=== PATIENT | male | born 1980 | race Hispanic/Latino ===

== ENCOUNTER 2017-07-27 23:24 | Emergency (ER) | payer SELFPAY ==
[2017-07-27 23:24] VITALS: BMI 25.1
[2017-07-27 23:35] VITALS: BP 113/66; PULSE 81; RESP 16; TEMP 98.6; O2SAT 98
--- NOTE | 2017-07-27 23:41 | ED PDOC ---
Lower Extremity Pain/Injury Time Seen by Provider: 07/27/17 23:36 Chief Complaint (Nursing): Lower Extremity Problem/Injury Chief Complaint (Provider): Ankle swelling History Per: Patient Additional Complaint(s): 37 yo male, no PMh, presents to ED with complaint sof pain and swelling to bilateral Achilles. 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 Pt reports taking Motrin with transient relief of pain Past Medical History Reviewed: Nursing Documentation, Vital Signs Vital Signs: Last Vital Signs Temp 98.6 F 07/27/17 23:34 Pulse 81 07/27/17 23:34 Resp 16 07/27/17 23:34 BP 113/66 07/27/17 23:34 Pulse Ox 98 07/27/17 23:34 - Medical History PMH: No Chronic Diseases - Surgical History Surgical History: No Surg Hx - Family History Family History: States: Unknown Family Hx - Living Arrangements Living Arrangements: With Family - Social History Current smoker - smoking cessation education provided: No - Immunization History Hx Tetanus Toxoid Vaccination: No Hx Influenza Vaccination: No Hx Pneumococcal Vaccination: No - Home Medications Home Medications: Ambulatory Orders Medication Instructions Recorded No Known Home Med 04/26/17 - Allergies Allergies/Adverse Reactions: Allergies Allergy/AdvReac Type Severity Reaction Status Date / Time No Known Allergies Allergy Verified 04/26/17 14:19 Review of Systems ROS Statement: Except As Marked, All Systems Reviewed And Found Negative Musculoskeletal: Positive for: Foot Pain Physical Exam - Reviewed Nursing Documentation Reviewed: Yes Vital Signs Reviewed: Yes - Physical Exam Appears: Positive for: Well, Non-toxic, No Acute Distress Head Exam: Positive for: ATRAUMATIC, NORMAL INSPECTION, NORMOCEPHALIC Skin: Positive for: Normal Color, Warm, DRY Eye Exam: Positive for: EOMI, Normal appearance, PERRL ENT: Positive for: Normal ENT Inspection Neck: Positive for: Normal, Painless ROM Cardiovascular/Chest: Positive for: Regular Rate, Rhythm Respiratory: Positive for: CNT, Normal Breath Sounds Gastrointestinal/Abdominal: Positive for: Normal Exam, Bowel Sounds, Soft Back: Positive for: Normal Inspection Extremity: Positive for: Normal ROM, Tenderness (to achillies b/l L > R). Negative for: Deformity, Swelling Neurologic/Psych: Positive for: Alert, Oriented - ECG O2 Sat by Pulse Oximetry: 98 Medical Decision Making Medical Decision Making: RICE therapy advised, along with Motrin PO. Pt reports he can go home right now and take Motrin and will ice. Does not want to stay in ED any long. Pt very happy with evaluation and instructions. Disposition - Clinical Impression Clinical Impression: Tendonitis - Patient ED Disposition Is Patient to be Admitted: No - Disposition Disposition: Routine/Home Disposition Time: 23:41 Condition: STABLE - POA Present On Arrival: None
== END 2017-07-28 00:04 | disposition home or self-care (01) ==
LOC: H.ER 23:24
DX: M76.62 Achilles tendinitis, left leg (principal); M76.61 Achilles tendinitis, right leg

== ENCOUNTER 2017-08-11 15:42 | Emergency (ER) | payer SELFPAY ==
[2017-08-11 15:42] VITALS: BMI 25.1
[2017-08-11 15:53] VITALS: BP 178/93; PULSE 75; RESP 16; TEMP 98.2; O2SAT 100
--- NOTE | 2017-08-11 16:31 | ED PDOC ---
Lower Extremity Pain/Injury Time Seen by Provider: 08/11/17 16:40 Chief Complaint (Nursing): Lower Extremity Problem/Injury Chief Complaint (Provider): Bliateral ankle pain History Per: Patient History/Exam Limitations: no limitations Onset/Duration Of Symptoms: Other (3 months) Current Symptoms Are (Timing): Still Present Additional Complaint(s): Patient is a 37 y/o male with no significant past medical history presenting to the emergency department for bilateral ankle pain and swelling ongoing for three months. Reports that it is painful to walk but feels no pain when bearing weight on his heels alone. Also notes having an active lifestyle and a job that requires being on his feet for long, uninterrupted periods of time. Denies trauma or other complaints. Of note, patient had a recent ED visit on 07/27/17 for the same complaint and was diagnosed with tendonitis. PCP: none provided. Past Medical History Reviewed: Historical Data, Nursing Documentation, Vital Signs Vital Signs: Last Vital Signs Temp 98.2 F 08/11/17 15:47 Pulse 75 08/11/17 15:47 Resp 16 08/11/17 15:47 BP 178/93 H 08/11/17 15:47 Pulse Ox 100 08/11/17 15:47 - Medical History PMH: No Chronic Diseases - Surgical History Surgical History: No Surg Hx - Family History Family History: States: Unknown Family Hx - Social History Current smoker - smoking cessation education provided: Yes Ex-Smoker (has not smoked in the last 12 months): No Alcohol: Social - Immunization History Hx Tetanus Toxoid Vaccination: No Hx Influenza Vaccination: No Hx Pneumococcal Vaccination: No - Home Medications Home Medications: Ambulatory Orders Medication Instructions Recorded RX: No Known Home Med 04/26/17 - Allergies Allergies/Adverse Reactions: Allergies Allergy/AdvReac Type Severity Reaction Status Date / Time No Known Allergies Allergy Verified 08/11/17 15:47 Review of Systems ROS Statement: Except As Marked, All Systems Reviewed And Found Negative Musculoskeletal: Positive for: Other (bilateral ankle pain and swelling) Physical Exam - Reviewed Nursing Documentation Reviewed: Yes Vital Signs Reviewed: Yes - Physical Exam Appears: Positive for: Well, Non-toxic, No Acute Distress Head Exam: Positive for: ATRAUMATIC, NORMAL INSPECTION, NORMOCEPHALIC Skin: Positive for: Normal Color, Warm, Dry Eye Exam: Positive for: Normal appearance Neck: Positive for: Normal Cardiovascular/Chest: Positive for: Regular Rate, Rhythm Respiratory: Negative for: Accessory Muscle Use, Respiratory Distress Extremity: Positive for: Normal ROM, Tenderness (Achilles) Neurologic/Psych: Positive for: Alert, Oriented (x3) - ECG O2 Sat by Pulse Oximetry: 100 (RA) Pulse Ox Interpretation: Normal Medical Decision Making Medical Decision Makin:40 Advised patient to buy insoles to help resolve heel pain and to follow up with a pinion and wheel truer. Patient is stable for discharge. Clinical impression: Achilles tendinitis ~ Scribe Attestation: Documented by Jen Garcia, acting as a scribe for TOÑO Yoon. Provider Scribe Attestation: All medical record entries made by the Scribe were at my direction and personally dictated by me. I have reviewed the chart and agree that the record accurately reflects my personal performance of the history, physical exam, medical decision making, and the department course for this patient. I have also personally directed, reviewed, and agree with the discharge instructions and disposition. Disposition - Clinical Impression Clinical Impression: Achilles tendinitis - Patient ED Disposition Is Patient to be Admitted: No Doctor Will See Patient In The: Office Counseled Patient/Family Regarding: Diagnosis, Need For Followup - Disposition Referrals: Podiatry Clinic [Outside] Disposition Time: 16:40 Condition: STABLE Instructions: Achilles Tendinitis (ED) Forms: [employer] (Uzbek)
== END 2017-08-11 16:51 | disposition home or self-care (01) ==
LOC: H.ER 15:42
DX: M76.60 Achilles tendinitis, unspecified leg (principal)

== ENCOUNTER 2017-12-17 00:58 | Emergency (ER) | payer SELFPAY ==
[2017-12-17 00:59] VITALS: BMI 25.1
[2017-12-17 01:08] VITALS: BP 162/80; PULSE 57; RESP 16; TEMP 98; O2SAT 98
--- NOTE | 2017-12-17 01:31 | ED PDOC ---
Lower Extremity Pain/Injury Time Seen by Provider: 12/17/17 01:31 Chief Complaint (Nursing): Lower Extremity Problem/Injury Chief Complaint (Provider): ankle pain History Per: Patient Additional Complaint(s): 37-year-old male presents to emergency department with pain and swelling to right ankle for 2 weeks. He denies trauma or injury. He is able to walk but has pain when doing so. No medicine taken for pain relief since pain started 2 weeks ago. PMD: none Past Medical History Reviewed: Historical Data, Nursing Documentation, Vital Signs Vital Signs: Last Vital Signs Temp 98.0 F 12/17/17 01:05 Pulse 57 L 12/17/17 01:05 Resp 16 12/17/17 01:05 BP 162/80 H 12/17/17 01:05 Pulse Ox 98 12/17/17 01:05 - Medical History PMH: No Chronic Diseases - Family History Family History: States: No Known Family Hx - Living Arrangements Living Arrangements: With Family - Social History Current smoker - smoking cessation education provided: No Alcohol: None Drugs: Denies - Home Medications Home Medications: Ambulatory Orders Medication Instructions Recorded Ibuprofen [Motrin] 600 mg PO Q6 PRN #15 tab 12/17/17 - Allergies Allergies/Adverse Reactions: Allergies Allergy/AdvReac Type Severity Reaction Status Date / Time No Known Allergies Allergy Verified 08/11/17 15:47 Wells Criteria for PE - Wells Criteria for Pulmonary Embolism Clinical Signs and Symptoms of DVT: No P.E is #1 Diagnosis, or Equally Likely: No Heart Rate >100: No Immobilization at least 3 days;Surgery previous 4 weeks: No Previous, objectively diagnosed PE or DVT: No Hemoptysis: No Malignancy w/treatment within 6 months, or palliative: No Total Score: 0 Review of Systems ROS Statement: Except As Marked, All Systems Reviewed And Found Negative Musculoskeletal: Positive for: Other (right ankle pain x 2 weeks) Physical Exam - Reviewed Nursing Documentation Reviewed: Yes Vital Signs Reviewed: Yes - Physical Exam Appears: Positive for: Well, Non-toxic, No Acute Distress Skin: Negative for: Rash Eye Exam: Positive for: Normal appearance Extremity: Positive for: Other (mild swelling and tenderness right lateral malleolus with full range of motion right ankle, nontender right foot, no ecchymosis or erythema, normal distal sensation) Neurologic/Psych: Positive for: Alert, Oriented - ECG O2 Sat by Pulse Oximetry: 98 Pulse Ox Interpretation: Normal - Other Rad X-ray right ankle X-Ray: Interpreted by Me, Viewed By Me X-Ray Interpretation: no fx, no dis Medical Decision Making Medical Decision Makin-year-old male with ankle pain for 2 weeks Plan: X-ray right ankle PO motrin and tylenol Patient is aware of x-ray results. All questions answered. Aircast given, see procedure note. Patient declined crutches. Patient given prescription for Motrin and was referred to podiatry clinic for follow-up. Procedures - Splinting Location: right ankle Pre-Made Type: bernadette wrap and aircast Pre-Proc Neuro Vasc Exam: normal Post-Proc Neuro Vasc Exam: normal Disposition - Clinical Impression Clinical Impression: Ankle sprain and strain - Patient ED Disposition Is Patient to be Admitted: No Counseled Patient/Family Regarding: Studies Performed, Diagnosis, Need For Followup, Rx Given - Disposition Referrals: Podiatry Clinic [Outside] Disposition: Routine/Home Disposition Time: 02:08 Condition: STABLE Additional Instructions: Ice, rest and elevate affected area. Take rx meds as directed as needed for pain Follow up with podiatry clinic. Prescriptions: Ibuprofen [Motrin] 600 mg PO Q6 PRN #15 tab PRN Reason: Pain, Moderate (4-7) Instructions: Ankle Sprain (DC) Forms: [employer] (Andorran), [facility] ED School/Work Excuse
--- NOTE | 2017-12-17 09:17 | RAD ---
PROCEDURE: Right Ankle Radiographs. HISTORY: trauma COMPARISON: None FINDINGS: BONES: No acute fracture. JOINTS: Ankle mortise maintained. Talar dome intact SOFT TISSUES: Normal. OTHER FINDINGS: None. IMPRESSION: No demonstrated fracture or dislocation.
== END 2017-12-17 02:55 | disposition home or self-care (01) ==
LOC: H.ER 00:58
DX: S93.401A Sprain of unspecified ligament of right ankle, initial encounter (principal); X58.XXXA Exposure to other specified factors, initial encounter

== ENCOUNTER 2018-05-11 11:31 | Emergency (ER) | payer OTHER ==
[2018-05-11 11:35] VITALS: BMI 25.8
[2018-05-11 11:36] VITALS: TEMP 98
--- NOTE | 2018-05-11 12:58 | ED PDOC ---
Upper Extremity Pain/Injury Time Seen by Provider: 05/11/18 12:18 Chief Complaint (Nursing): Upper Extremity Problem/Injury History Per: Patient Additional Complaint(s): Pt. states for the past month he's had atraumatic R shoulder pain. 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 Denies numbness, tingling, chest pain, SOB. Past Medical History Reviewed: Historical Data, Nursing Documentation, Vital Signs Vital Signs: Last Vital Signs Temp 98 F 05/11/18 11:35 Pulse 48 L 05/11/18 11:35 Resp 16 05/11/18 11:35 BP 132/68 05/11/18 11:35 Pulse Ox 96 05/11/18 11:35 - Family History Family History: States: No Known Family Hx - Immunization History Hx Tetanus Toxoid Vaccination: No Hx Influenza Vaccination: No Hx Pneumococcal Vaccination: No - Home Medications Home Medications: Ambulatory Orders Medication Instructions Recorded Ibuprofen [Motrin] 600 mg PO Q6 PRN #15 tab 12/17/17 - Allergies Allergies/Adverse Reactions: Allergies Allergy/AdvReac Type Severity Reaction Status Date / Time No Known Allergies Allergy Verified 05/11/18 12:13 Review of Systems ROS Statement: Except As Marked, All Systems Reviewed And Found Negative Musculoskeletal: Positive for: Shoulder Pain Physical Exam - Physical Exam Appears: Positive for: Well, Non-toxic, No Acute Distress Skin: Positive for: Normal Color, Warm. Negative for: Rash Eye Exam: Positive for: Normal appearance Pulses-Radial (L): 2+ Pulses-Radial (R): 2+ Extremity: Positive for: Other (R shoulder without swelling, tenderness, deformity; equal link assembler strength b/l) Neurologic/Psych: Positive for: Alert, Oriented - ECG O2 Sat by Pulse Oximetry: 96 - Progress ED Course And Treament: Toradol 60mg IM ordered. Offered shoulder x-ray but refused. Advised to f/u with [facility] for further evaluation. Pt. agrees with plan. Disposition - Clinical Impression Clinical Impression: Shoulder pain - Patient ED Disposition Is Patient to be Admitted: No - Disposition Referrals: [facility] [Outside] Disposition: Routine/Home Disposition Time: 12:42 Condition: STABLE Additional Instructions: NEERU BLACKMON, thank you for letting us take care of you today. Your provider was Nafisa Ruiz MD and you were treated for RIGHT SHOULDER PAIN. The emergency medical care you received today was directed at your acute symptoms. If you were prescribed any medication, please fill it and take as directed. It may take several days for your symptoms to resolve. Return to the Emergency Department if your symptoms worsen, do not improve, or if you have any other problems. Please contact your doctor or call one of the physicians/clinics you have been referred to that are listed on the Patient Visit Information form that is included in your discharge packet. Bring any paperwork you were given at discharge with you along with any medications you are taking to your follow up visit. Our treatment cannot replace ongoing medical care by a primary care provider outside of the emergency department. Thank you for allowing the [facility] team to be part of your care today. If you had an X-Ray or CT scan: A Radiologist will review the ED reading if any change in treatment is needed we will contact you. If you had a blood, urine, or wound culture: It will take several days for the results, if any change in treatment is needed we will contact you. If you had an STI test: It will take 48 hours for the results. Please call after 1 week if you have not heard back. Instructions: Shoulder Pain (DC) Forms: [employer] (Czech) Print Language: CHINESE
[2018-05-11 13:18] VITALS: BP 125/80; PULSE 80; RESP 18
[2018-05-11 18:01] VITALS: O2SAT 96
== END 2018-05-11 13:21 | disposition home or self-care (01) ==
LOC: H.ER 11:31
DX: M25.511 Pain in right shoulder (principal)
CPT/HCPCS: 96372; 99283; J1885